=== PATIENT | female | born 1950 | race Caucasian/White ===

== ENCOUNTER 2021-06-14 05:32 | Inpatient (IN) | payer MEDICARE, OTHER ==
[2021-06-07 14:17] LABS: BASOPHILS # (AUTO) 0.1 X10'3 (0-0.2); BASOPHILS % (AUTO) 1.1 % (0-1); EOSINOPHILS # (AUTO) 0.1 X10'3 (0-0.9); EOSINOPHILS % (AUTO) 1.1 % (0-6); LYMPHOCYTES # (AUTO) 0.9 X10'3 (1.1-4.8); LYMPHOCYTES % (AUTO) 18.7 % (21-51); MEAN CORPUSCULAR HEMOGLOBIN 33.1 PG (27.0-31.0); MEAN CORPUSCULAR HGB CONC 34.2 g/dL (33.0-36.5); MEAN CORPUSCULAR VOLUME 96.6 FL (78-98); MEAN PLATELET VOLUME 7.5 FL (7.4-10.4); MONOCYTES # (AUTO) 0.5 X10'3 (0-0.9); MONOCYTES % (AUTO) 9.5 % (2-12); NEUTROPHILS # (AUTO) 3.4 X10'3 (1.8-7.7); NEUTROPHILS % (AUTO) 69.6 % (42-75); PRE OP HEMATOCRIT 40.9 % (35.0-45.0); PRE OP PLATELET COUNT 195 X10'3 (140-440); RED BLOOD COUNT 4.23 X10'6 (4.20-5.60); RED CELL DISTRIBUTION WIDTH 13.6 % (11.5-14.5)
[2021-06-07 14:40] LABS: ALBUMIN 3.8 G/DL (3.4-5.0); ALBUMIN/GLOBULIN RATIO 1.1 (1.1-1.5); ALKALINE PHOSPHATASE 88 IU/L (46-116); BLOOD UREA NITROGEN 28 MG/DL (7-18); BUN/CREATININE RATIO 26.4 (6.6-38.0); CALCIUM 8.8 MG/DL (8.5-10.1); CHLORIDE 108 MMOL/L (99-107); CREATININE 1.06 MG/DL (0.40-0.90); PRE OP ALT 21 U/L (30-65); PRE OP ANION GAP 9 (8-16); PRE OP AST 20 U/L (10-37); PRE OP BILIRUB, TOTAL 0.5 MG/DL (0.0-1.0); PRE OP GLUCOSE 115 MG/DL (70-104); PRE OP SODIUM 144 MMOL/L (135-145); TOTAL CARBON DIOXIDE 27.4 MMOL/L (24-32); TOTAL PROTEIN 7.2 G/DL (6.4-8.2); eGFR 51 ML/MIN
[2021-06-14] VITALS (24 sets, daily range): BP systolic 119–158; BP diastolic 43–78
[~2021-06-14] VITALS: Ht 167.6 cm; Wt 85.9 kg
[~2021-06-14 05:32] MED LIST: AMLO2.5T2 PO; ERGO400C PO; FAMO20TA8 PO; LEVO25TA7 PO; LOSA50TA3 PO; MAGN400C PO; MELO-100 PO; PRED1TAB PO; TRAM50TA2 PO; VITA400T10 PO; cefazolin/dext.iso 2gm/50ml IV ONE; famotidine 20mg tablet PO ONE; ringers solution, lacted 1,000 ML IV SCH; tranexamic acid 650mg tablet PO ONE; vancomycin 1,500 MG in NS 300ml IV soln IV ONE
[2021-06-14] MEDS ORDERED: BUPIVAcaine 0.5% inj/PF 30 ML ONE (06:42)
[2021-06-14] MEDS ORDERED: ketorolac trometh. 30mg/ml inj. ONE (06:42)
[2021-06-14] MEDS ORDERED: BUPIVAcaine/PF 2.5 mg/ml (0.25%) 30ml vial ONE (06:44)
[2021-06-14] MEDS ORDERED: ROPIVAcaine 0.5% (5mg/ml) 30ml vial ONE ×2 (06:47→08:09)
[2021-06-14] MEDS ORDERED: sevoflurane 250ml liquid IH ONE (07:06)
[2021-06-14] MEDS ORDERED: midazolam 1 mg/ML 2ml injection ONE (07:11)
[2021-06-14] MEDS ORDERED: fentaNYL/PF 50MCG/1 ML 2ML syringe ONE (07:11)
[2021-06-14] MEDS ORDERED: rocuronium 10mg/ml inj IV ONE ×2 (08:09→08:13)
[2021-06-14] MEDS ORDERED: LIDOcaine 2% (20mg/ml) 5ml vial ONE (08:09)
[2021-06-14] MEDS ORDERED: propofol inj 20 ML IV ONE (08:09)
[2021-06-14] MEDS ORDERED: LIDOcaine 1%/PF 5ML 10 MG/ML VIAL ONE (08:09)
[2021-06-14] MEDS ORDERED: 0.9 % SODIUM CHLORIDE 10 ML VIAL ONE (08:09)
[2021-06-14] MEDS ORDERED: ePHEDrine 50MG/ML INJ. ONE (08:10)
[2021-06-14] MEDS ORDERED: ondansetron/PF 4mg/2ml inj ONE (08:13)
[2021-06-14] MEDS ORDERED: dexamethasone sod phosphate 4mg/ml inj. ONE (08:37)
[2021-06-14] MEDS ORDERED: acetaminophen 1,000mg/100ml IV 100 ML IV PRN (08:40)
[2021-06-14] MEDS ORDERED: ringers solution, lacted 1,000 ML IV SCH (08:40)
[2021-06-14] MEDS ORDERED: labetalol 20mg/4ml (5mg/ml) syringe IV PRN (08:40)
[2021-06-14] MEDS ORDERED: meperidine/PF 25mg/ml syringe IV PRN (08:40)
[2021-06-14] MEDS ORDERED: ROPIVAcaine 0.2% (10 MG/5 ML) BOLUS INJECTION INTERSCALE PRN (08:40)
[2021-06-14] MEDS ORDERED: hydrALAZINE 20mg/ml inj. IV PRN (08:40)
[2021-06-14] MEDS ORDERED: HYDROmorphone/PF 0.2 MG/ML SYRINGE IV PRN ×2 (08:40)
[2021-06-14] MEDS ORDERED: ROPIVAcaine 0.2%/PF PUMP/bolus 545 ML INTERSCALE SCH (08:40)
[2021-06-14] MEDS ORDERED: ondansetron/PF 4mg/2ml inj IV PRN ×2 (08:40→09:10)
[2021-06-14] MEDS ORDERED: fentaNYL/PF 50MCG/1 ML 2ML syringe IV PRN ×2 (08:40)
[2021-06-14] MEDS ORDERED: glycopyrrolate 0.2mg/ml inj ONE (08:57)
[2021-06-14] MEDS ORDERED: neostigmine methylsulfate 1 MG/ML 10ml vial ONE (08:57)
--- NOTE | 2021-06-14 09:07 | NUR ---
Received from OR via BED, accompanied by Anesthesiologist DR CASTANO and report given by Anesthesiologist AND DIRECTOR MORTGAGE. PT LEFT SHOULDER W/DRSG CDI, SHOULDER WRAP, ICE PACK, IMMOBILIZER IN PLACE. PT DROWSY, DENIES PAIN. RIGHT OUTER ELBOW NOTED TO HAVE A 1 INCH SKIN TEAR, CLEANSED, ZEROFORM APPLIED W/TAGADERM. Addendum: 06/14/21 at 0945 by Demi Wynne RN Amended: Links added.
[2021-06-14] MEDS ORDERED: acetaminophen 325mg tablet PO PRN (09:10)
[2021-06-14] MEDS ORDERED: oxyCODONE IR 5mg (immed. release) tablet PO PRN ×2 (09:10)
[2021-06-14] MEDS ORDERED: diphenhydrAMINE 25mg capsule PO PRN ×2 (09:10)
[2021-06-14] MEDS: potassium cl 20mEq in 1/2 NS 1,000 ML IV SCH ×2 (09:10→18:01)
[2021-06-14] MEDS ORDERED: bisacodyl 10mg suppository rectal RC PRN (09:10)
[2021-06-14] MEDS ORDERED: HYDROmorphone inj. 0.5 MG/0.5 ML DISP.SYRIN IV PRN (09:10)
[2021-06-14] MEDS ORDERED: magnesium hydroxide 30ml (MOM) UD suspension PO PRN (09:10)
[2021-06-14] MEDS ORDERED: HYDROmorphone 1 mg/ml syringe IV PRN (09:10)
[2021-06-14] MEDS: proCHLORperazine 10 MG/2 ml inj IV PRN ×2 (10:02→10:21)
--- NOTE | 2021-06-14 10:39 | NUR ---
Patient in room . I have received report from ONEYDA KIRBY and had the opportunity to ask questions and assume patient care.
[2021-06-14] MEDS ORDERED: scopolamine 1mg/72 hr patch TD PRN (10:55)
--- NOTE | 2021-06-14 11:17 | NUR ---
Report called to receiving nurse. Transferred via BED W/2 BAGS OF Belongings AND 1 RED BAG TO ROOM 355A, BLL, CALL LIGHT GIVEN, SIDE RAILS UP X 3, NURSES AID AT BEDSIDE TO ATTACH PT TO VS. Special Issues communicated to receiving nurse. YES. Addendum: 06/14/21 at 1121 by Demi Wynne RN Amended: Links added.
[2021-06-14] MEDS: acetaminophen 325mg tablet PO SCH ×2 (14:41→21:54)
[2021-06-14] MEDS: ceFAZolin/D5W- 1GM premix 50 ML IV SCH (16:48)
--- NOTE | 2021-06-14 18:10 | NUR ---
Problems reprioritized. Patient report given, questions answered & plan of care reviewed with rosa hall .
[2021-06-14] MEDS ORDERED: vancomycin/NS 1 GM ADD-VANTAGE 250 ML IV SCH (20:00)
[2021-06-14] MEDS ORDERED: sennosides 8.6mg tablet PO SCH (21:00)
[2021-06-14] MEDS ORDERED: traMADol 50MG tablet PO SCH (21:00)
[2021-06-15] VITALS: BP 109/49
[2021-06-15] MEDS: ceFAZolin/D5W- 1GM premix 50 ML IV SCH (00:08)
[2021-06-15] MEDS: potassium cl 20mEq in 1/2 NS 1,000 ML IV SCH ×2 (01:10→09:10)
[2021-06-15] MEDS: acetaminophen 325mg tablet PO SCH ×2 (02:00→07:52)
[2021-06-15] MEDS ORDERED: mag hydrox/Alum hydrox/simeth 30ml oral suspension PO ONE (04:20)
[2021-06-15 05:59] LABS: BASOPHILS % (AUTO) 0.1 % (0-1); EOSINOPHILS % (AUTO) 0 % (0-6); HEMATOCRIT 35.9 % (35.0-45.0); HEMOGLOBIN 12.3 g/dl (12.0-16.0); LYMPHOCYTES # (AUTO) 0.7 X10'3 (1.1-4.8); LYMPHOCYTES % (AUTO) 8.3 % (21-51); MEAN CORPUSCULAR HEMOGLOBIN 33.3 PG (27.0-31.0); MEAN CORPUSCULAR HGB CONC 34.3 g/dL (33.0-36.5); MEAN CORPUSCULAR VOLUME 96.9 FL (78-98); MEAN PLATELET VOLUME 7.8 FL (7.4-10.4); MONOCYTES # (AUTO) 0.7 X10'3 (0-0.9); MONOCYTES % (AUTO) 8.9 % (2-12); NEUTROPHILS # (AUTO) 6.5 X10'3 (1.8-7.7); NEUTROPHILS % (AUTO) 82.7 % (42-75); PLATELET COUNT 182 X10'3 (140-440); RED CELL DISTRIBUTION WIDTH 13.5 % (11.5-14.5); WHITE BLOOD COUNT 7.9 X10'3 (4.5-11.0)
--- NOTE | 2021-06-15 06:00 | NUR ---
Problems reprioritized. Patient report given, questions answered & plan of care reviewed with LAY. Addendum: 06/15/21 at 0642 by Sohail Camarena RN Amended: Links added.
[2021-06-15 06:13] LABS: ANION GAP 10 (8-16); CHLORIDE 108 MMOL/L (99-107); POTASSIUM 4.3 MMOL/L (3.5-5.1); SODIUM 143 MMOL/L (135-145); TOTAL CARBON DIOXIDE 25.4 MMOL/L (24-32)
--- NOTE | 2021-06-15 06:30 | NUR ---
Patient in room [facility]. I have received report from KOFI Mercedes and had the opportunity to ask questions and assume patient care.
--- NOTE | 2021-06-15 06:50 | NUR ---
Problems reprioritized. Patient report given, questions answered & plan of care reviewed with LAY. Addendum: 06/15/21 at 0651 by Sohail Camarena RN Amended: Links added.
[2021-06-15 07:00] VITALS: BP 145/79
[2021-06-15] MEDS ORDERED: amLODIPine 5mg tablet PO SCH (08:00)
[2021-06-15] MEDS ORDERED: MELOXICAM PO SCH (08:00)
[2021-06-15] MEDS ORDERED: famotidine 20mg tablet PO SCH (08:00)
[2021-06-15] MEDS ORDERED: losartan 50mg tablet PO SCH (08:00)
[2021-06-15] MEDS ORDERED: levoTHYROXINE 25mcg tablet PO SCH (08:00)
[2021-06-15] MEDS ORDERED: predniSONE 1 mg tablet PO SCH (08:00)
[2021-06-15] MEDS ORDERED: aspirin 325mg tablet PO SCH (08:30)
[2021-06-15 11:00] VITALS: BP 125/65
[2021-06-16] MEDS ORDERED: acetaminophen 325mg tablet PO PRN (09:10)
== END 2021-06-15 14:55 | disposition home or self-care (01) | DRG 483 ==
LOC: PAS 05:32 → EDSTATUS 10:00 → PAS IN 10:36 → SUR 3N 11:36
PROVIDERS: ADMIT Orthopaedic Surgery; ATTEND Orthopaedic Surgery
PROC: 0LS40ZZ Reposition Left Upper Arm Tendon, Open Approach (ICD-10-PCS; 2021-06-14)
PROC: 3E0T3BZ Introduction of Anesthetic Agent into Peripheral Nerves and Plexi, Percutaneous Approach (ICD-10-PCS; 2021-06-14)
PROC: 0RRK00Z Replacement of Left Shoulder Joint with Reverse Ball and Socket Synthetic Substitute, Open Approach (ICD-10-PCS; principal; 2021-06-14 07:06)
DX: M19.012 Primary osteoarthritis, left shoulder (principal); M75.102 Unspecified rotator cuff tear or rupture of left shoulder, not specified as traumatic; Z79.899 Other long term (current) drug therapy
CPT/HCPCS: 36415; 73020; 80051; 80053; 82948; 84443; 85025; 87081; 93005; 97161; 97530; G0378; J0690; J0780; J1100; J1885; J2250; J2405; J2704; J2710; J2795; J3010; J3370; J3480; J3490; J7040; J7120; S0020; U0003; U0005

== ENCOUNTER 2022-03-01 07:04 | Inpatient (IN) | payer MEDICARE, OTHER ==
[2022-02-23 15:56] LABS: BASOPHILS # (AUTO) 0.1 X10'3 (0-0.2); BASOPHILS % (AUTO) 0.9 % (0-1); EOSINOPHILS # (AUTO) 0.1 X10'3 (0-0.9); EOSINOPHILS % (AUTO) 2.3 % (0-6); LYMPHOCYTES # (AUTO) 1.1 X10'3 (1.1-4.8); LYMPHOCYTES % (AUTO) 18.5 % (21-51); MEAN CORPUSCULAR HEMOGLOBIN 32.7 PG (27.0-31.0); MEAN CORPUSCULAR HGB CONC 34.1 g/dL (33.0-36.5); MEAN CORPUSCULAR VOLUME 95.9 FL (78-98); MEAN PLATELET VOLUME 8.5 FL (7.4-10.4); MONOCYTES # (AUTO) 0.4 X10'3 (0-0.9); MONOCYTES % (AUTO) 7.7 % (2-12); NEUTROPHILS # (AUTO) 4.1 X10'3 (1.8-7.7); NEUTROPHILS % (AUTO) 70.6 % (42-75); PRE OP HEMATOCRIT 40.8 % (35.0-45.0); PRE OP HEMOGLOBIN 13.9 g/dL (12.0-16.0); PRE OP PLATELET COUNT 221 X10'3 (140-440); RED BLOOD COUNT 4.26 X10'6 (4.20-5.60); RED CELL DISTRIBUTION WIDTH 12.8 % (11.5-14.5)
[2022-02-23 16:17] LABS: ALBUMIN 4.2 G/DL (3.4-5.0); ALBUMIN/GLOBULIN RATIO 1.3 (1.1-1.5); ALKALINE PHOSPHATASE 102 IU/L (46-116); BLOOD UREA NITROGEN 28 MG/DL (7-18); BUN/CREATININE RATIO 24.1 (6.6-38.0); CALCIUM 9.3 MG/DL (8.5-10.1); CHLORIDE 106 MMOL/L (99-107); CREATININE 1.16 MG/DL (0.40-0.90); PRE OP ALT 16 U/L (30-65); PRE OP ANION GAP 9 (8-16); PRE OP AST 28 U/L (10-37); PRE OP BILIRUB, TOTAL 0.6 MG/DL (0.0-1.0); PRE OP GLUCOSE 98 MG/DL (70-104); PRE OP POTASSIUM 4.1 MMOL/L (3.4-5.1); PRE OP SODIUM 143 MMOL/L (135-145); TOTAL CARBON DIOXIDE 28.4 MMOL/L (24-32); TOTAL PROTEIN 7.4 G/DL (6.4-8.2); eGFR 46 ML/MIN
[2022-03-01] VITALS (17 sets, daily range): BP systolic 94–132; BP diastolic 43–69
[~2022-03-01] VITALS: Ht 167.6 cm; Wt 87.1 kg
[~2022-03-01 07:04] MED LIST changes: -ERGO400C PO; -FAMO20TA8 PO; -MAGN400C PO; +PANT-47 PO; -TRAM50TA2 PO; -VITA400T10 PO; +ceFAZolin inj. 2,000 MG in dextrose 5%-water 100 ML IV ONE; -cefazolin/dext.iso 2gm/50ml IV ONE
--- NOTE | 2022-03-01 07:30 | NUR ---
PT WAS ABLE TO COMPLETE ALL 5 SHOWERS AND OINTMENT, HAD PREVIOUSLY HAD LEFT SHOULDER DONE AWARE OF WHAT TO EXPECT, CSM + TO BILAT UPPER EXTREMITES
[2022-03-01] MEDS ORDERED: ROPIVAcaine 0.5% (5mg/ml) 30ml vial ONE (08:51)
[2022-03-01] MEDS ORDERED: aprepitant 40mg capsule PO ONE (09:22)
[2022-03-01] MEDS ORDERED: fentaNYL/PF 50MCG/1 ML 2ML syringe ONE (09:52)
[2022-03-01] MEDS ORDERED: midazolam 1 mg/ML 2ml injection ONE (09:53)
[2022-03-01] MEDS ORDERED: LIDOcaine 1%/PF 5ML 10 MG/ML VIAL ONE ×2 (10:21→11:14)
[2022-03-01] MEDS: ketorolac trometh. 30mg/ml inj. ONE ×2 (10:46→10:47)
[2022-03-01] MEDS ORDERED: morphine 4 MG/ML inj SYRINge IV PRN (11:05)
[2022-03-01] MEDS ORDERED: ringers solution, lacted 1,000 ML IV SCH (11:05)
[2022-03-01] MEDS ORDERED: meperidine/PF 25mg/ml syringe IV PRN ×3 (11:05)
[2022-03-01] MEDS ORDERED: ROPIVAcaine 0.2%/PF PUMP/bolus 545 ML INTERSCALE SCH (11:05)
[2022-03-01] MEDS ORDERED: ROPIVAcaine 0.2% (10 MG/5 ML) BOLUS INJECTION INTERSCALE PRN (11:05)
[2022-03-01] MEDS ORDERED: morphine 2 MG/ML inj. syringe IV PRN (11:05)
[2022-03-01] MEDS ORDERED: proCHLORperazine 10 MG/2 ml inj IV PRN (11:05)
[2022-03-01] MEDS ORDERED: ondansetron/PF 4mg/2ml inj IV PRN ×2 (11:05→12:10)
[2022-03-01] MEDS ORDERED: ondansetron/PF 4mg/2ml inj ONE (11:14)
[2022-03-01] MEDS ORDERED: dexamethasone sod phosphate 4mg/ml inj. ONE (11:14)
[2022-03-01] MEDS ORDERED: propofol inj 20 ML IV ONE (11:14)
[2022-03-01] MEDS ORDERED: rocuronium 10mg/ml inj IV ONE (11:45)
[2022-03-01] MEDS ORDERED: ePHEDrine 50MG/ML INJ. ONE (11:45)
--- NOTE | 2022-03-01 12:02 | NUR ---
Received from OR via BED, accompanied by Anesthesiologist and report given by WENCESLAO Anesthesiologist. PATIENT WAKING UP, DENIES PAIN, V/S WNL, SCD ON, 20G TO LH, drsg to shoulder C/D/I with SLING AND ICE POWDER PACK. Addendum: 03/01/22 at 1216 by Alfa Ramirez RN Amended: Links added.
[2022-03-01] MEDS ORDERED: oxyCODONE IR 5mg (immed. release) tablet PO PRN ×2 (12:10)
[2022-03-01] MEDS ORDERED: HYDROmorphone inj. 0.5 MG/0.5 ML DISP.SYRIN IV PRN (12:10)
[2022-03-01] MEDS ORDERED: naloxone 0.4 mg/ml inj IV PRN (12:10)
[2022-03-01] MEDS ORDERED: magnesium hydroxide 30ml (MOM) UD suspension PO PRN (12:10)
[2022-03-01] MEDS ORDERED: HYDROcodone/acetaminophen 10/325mg tab PO PRN ×2 (12:10)
[2022-03-01] MEDS ORDERED: diphenhydrAMINE 25mg capsule PO PRN ×2 (12:10)
[2022-03-01] MEDS ORDERED: bisacodyl 10mg suppository rectal RC PRN (12:10)
[2022-03-01] MEDS ORDERED: acetaminophen 325mg tablet PO PRN (12:10)
[2022-03-01] MEDS ORDERED: HYDROmorphone 1 mg/ml syringe IV PRN (12:10)
--- NOTE | 2022-03-01 13:02 | NUR ---
PATIENT HAS MET ALL CRITERIA FOR TRANSFER TO ORTHO FLOOR. VSS. DRESSINGS INTACT. BED LOW, CALL LIGHT PRESENT AND 2 RAILS UP. RN PRESENT TO ACCEPT CARE OF PATIENT AND REPORT HAS BEEN CALLED. ALL QUESTIONS ANSWERED TO ACCEPTING RN. Addendum: 03/01/22 at 1313 by Alfa Ramirez RN Amended: Links added.
[2022-03-01] MEDS ORDERED: metoclopramide 5 mg/ml inj IV PRN (14:10)
[2022-03-01] MEDS: ceFAZolin/D5W- 1GM premix 50 ML IV SCH (15:29)
[2022-03-01] MEDS: acetaminophen 325mg tablet PO SCH ×2 (15:33→21:19)
[2022-03-01] MEDS: potassium cl 20mEq in 1/2 NS 1,000 ML IV SCH ×2 (15:34→20:10)
--- NOTE | 2022-03-01 18:15 | NUR ---
REPORT TO SEPTEMBER RN
[2022-03-01] MEDS ORDERED: vancomycin/NS 1 GM ADD-VANTAGE 250 ML IV SCH (20:00)
[2022-03-01] MEDS ORDERED: sennosides 8.6mg tablet PO SCH (21:00)
[2022-03-01] MEDS ORDERED: pantoprazole 40mg Tablet.DR PO SCH (21:00)
[2022-03-02] MEDS: ceFAZolin/D5W- 1GM premix 50 ML IV SCH (00:13)
[2022-03-02] MEDS: potassium cl 20mEq in 1/2 NS 1,000 ML IV SCH (01:56)
[2022-03-02] MEDS: acetaminophen 325mg tablet PO SCH ×2 (01:56→08:13)
[2022-03-02 02:00] VITALS: BP 106/49
[2022-03-02 06:00] VITALS: BP 100/51
[2022-03-02 06:39] LABS: BASOPHILS % (AUTO) 0.2 % (0-1); EOSINOPHILS % (AUTO) 0 % (0-6); HEMOGLOBIN 11.1 g/dl (12.0-16.0); LYMPHOCYTES # (AUTO) 0.7 X10'3 (1.1-4.8); LYMPHOCYTES % (AUTO) 6.3 % (21-51); MEAN CORPUSCULAR HEMOGLOBIN 33.7 PG (27.0-31.0); MEAN CORPUSCULAR HGB CONC 34.9 g/dL (33.0-36.5); MEAN CORPUSCULAR VOLUME 96.7 FL (78-98); MEAN PLATELET VOLUME 8.6 FL (7.4-10.4); MONOCYTES # (AUTO) 0.8 X10'3 (0-0.9); NEUTROPHILS # (AUTO) 9.3 X10'3 (1.8-7.7); NEUTROPHILS % (AUTO) 86.5 % (42-75); PLATELET COUNT 169 X10'3 (140-440); RED BLOOD COUNT 3.31 X10'6 (4.20-5.60); RED CELL DISTRIBUTION WIDTH 12.8 % (11.5-14.5); WHITE BLOOD COUNT 10.7 X10'3 (4.5-11.0)
[2022-03-02 06:58] LABS: ANION GAP 8 (8-16); CHLORIDE 111 MMOL/L (99-107); POTASSIUM 4.6 MMOL/L (3.5-5.1); SODIUM 143 MMOL/L (135-145)
[2022-03-02] MEDS ORDERED: losartan 50mg tablet PO SCH (08:00)
[2022-03-02] MEDS ORDERED: levoTHYROXINE 25mcg tablet PO SCH (08:00)
[2022-03-02] MEDS ORDERED: predniSONE 1 mg tablet PO SCH (08:00)
[2022-03-02] MEDS ORDERED: MELOXICAM 7.5 MG TABLET PO SCH (08:00)
[2022-03-02] MEDS ORDERED: amLODIPine 2.5mg tablet PO SCH (08:00)
[2022-03-02] MEDS ORDERED: aspirin 325mg tablet PO SCH (08:30)
[2022-03-03] MEDS ORDERED: acetaminophen 325mg tablet PO PRN (12:10)
== END 2022-03-02 10:10 | disposition home or self-care (01) | DRG 483 ==
LOC: PAS 07:04 → EDSTATUS 10:00 → PAS IN 12:11 → ORTHO 4S 13:05
PROVIDERS: ADMIT Orthopaedic Surgery; ATTEND Orthopaedic Surgery
PROC: 0LS30ZZ Reposition Right Upper Arm Tendon, Open Approach (ICD-10-PCS; 2022-03-01)
PROC: 3E0T3BZ Introduction of Anesthetic Agent into Peripheral Nerves and Plexi, Percutaneous Approach (ICD-10-PCS; 2022-03-01)
PROC: 3E0T33Z Introduction of Anti-inflammatory into Peripheral Nerves and Plexi, Percutaneous Approach (ICD-10-PCS; 2022-03-01)
PROC: 0RRJ00Z Replacement of Right Shoulder Joint with Reverse Ball and Socket Synthetic Substitute, Open Approach (ICD-10-PCS; principal; 2022-03-01 09:48)
DX: M19.011 Primary osteoarthritis, right shoulder (principal); M75.121 Complete rotator cuff tear or rupture of right shoulder, not specified as traumatic; M65.811 Other synovitis and tenosynovitis, right shoulder
CPT/HCPCS: 36415; 80051; 80053; 82948; 85025; 87081; 87811; 97110; 97162; A4565; A4615; A4618; A7000; C1776; G0378; J0690; J1100; J1885; J2250; J2405; J2704; J2795; J3010; J3370; J3480; J3490; J7040; J7060; J7120; J7512; J8501; Q0163

== ENCOUNTER 2022-04-17 08:43 | Emergency (ER) | payer MEDICARE, OTHER ==
[~2022-04-17] VITALS: Ht 167.6 cm; Wt 84.0 kg
[~2022-04-17 08:43] MED LIST changes: +AMLO10TA13 PO; -AMLO2.5T2 PO; +ASPI-100 PO; +IBUP-1985 PO; +LACT1CAP75 PO; -LEVO25TA7 PO; +LEVO75TA7 PO; +MAGN400C PO; +SULF1TAB45 PO; -ceFAZolin inj. 2,000 MG in dextrose 5%-water 100 ML IV ONE; -famotidine 20mg tablet PO ONE; -ringers solution, lacted 1,000 ML IV SCH; -tranexamic acid 650mg tablet PO ONE; -vancomycin 1,500 MG in NS 300ml IV soln IV ONE
[2022-04-17] MEDS ORDERED: normal saline 1000ml 1,000 ML IV ONE (09:50)
[2022-04-17 10:36] LABS: BASOPHILS % (AUTO) 0.4 % (0-1); EOSINOPHILS # (AUTO) 0.1 X10'3 (0-0.9); EOSINOPHILS % (AUTO) 2.8 % (0-6); HEMATOCRIT 33.6 % (35.0-45.0); HEMOGLOBIN 11.5 g/dl (12.0-16.0); LYMPHOCYTES # (AUTO) 0.4 X10'3 (1.1-4.8); LYMPHOCYTES % (AUTO) 13.7 % (21-51); MEAN CORPUSCULAR HEMOGLOBIN 32.2 PG (27.0-31.0); MEAN CORPUSCULAR HGB CONC 34.1 g/dL (33.0-36.5); MEAN CORPUSCULAR VOLUME 94.3 FL (78-98); MEAN PLATELET VOLUME 8.2 FL (7.4-10.4); MONOCYTES # (AUTO) 0.2 X10'3 (0-0.9); MONOCYTES % (AUTO) 8.1 % (2-12); NEUTROPHILS # (AUTO) 1.9 X10'3 (1.8-7.7); PLATELET COUNT 148 X10'3 (140-440); RED BLOOD COUNT 3.56 X10'6 (4.20-5.60); RED CELL DISTRIBUTION WIDTH 12.7 % (11.5-14.5); WHITE BLOOD COUNT 2.6 X10'3 (4.5-11.0)
[2022-04-17 10:43] LABS: CLARITY,URINE CLEAR (Clear); COLOR,URINE YELLOW (Yellow); GLUCOSE, URINE NEGATIVE (Neg); KETONES,URINE 40 mg/dl (Neg); LEUKOCYTE ESTERASE ,URINE NEGATIVE (Neg); NITRITES, URINE NEGATIVE (Neg); OCCULT BLOOD,URINE NEGATIVE (Neg); PROTEIN,URINE 30 mg/dl (Neg); UROBILINOGEN,URINE 0.2 E.U/dL (0.2-1.0)
[2022-04-17 10:49] LABS: UA COLLECTION TYPE NON-SPECIFIED
[2022-04-17 10:50] LABS: BACTERIA,URINE FEW /HPF (Neg); MUCUS STRANDS MODERATE /LPF (Neg); RBC,URINE 0-2 /HPF (0-2); SQUAMOUS EPITHELIAL CELL,UR MANY /LPF (FEW); WBC,URINE 0-4 /HPF (0-4)
[2022-04-17 10:52] LABS: ALANINE AMINOTRANSFERASE 16 U/L (12-78); ALBUMIN 3.2 G/DL (3.4-5.0); ALKALINE PHOSPHATASE 91 IU/L (46-116); ANION GAP 11 (8-16); ASPARTATE AMINO TRANSFERASE 28 U/L (10-37); BILIRUBIN,TOTAL 0.4 MG/DL (0.1-1.0); BLOOD UREA NITROGEN 14 MG/DL (7-18); BUN/CREATININE RATIO 17.5 (6.6-38.0); CALCIUM 8.4 MG/DL (8.5-10.1); CHLORIDE 107 MMOL/L (99-107); GLUCOSE 97 MG/DL (70-104); MAGNESIUM 2.1 MG/DL (1.5-2.4); POTASSIUM 3.4 MMOL/L (3.5-5.1); SODIUM 142 MMOL/L (135-145); TOTAL PROTEIN 6.5 G/DL (6.4-8.2); eGFR 71 ML/MIN
[2022-04-17] MEDS ORDERED: POTASSIUM BICARB 20meq eff tab 20 MEQ TABLET.EFF PO PRN (11:05)
[2022-04-17 11:14] LABS: PLATELET ESTIMATE NORMAL; TOTAL CELLS COUNTED 100
[2022-04-17] MEDS ORDERED: metoclopramide 5 mg/ml inj IV ONE (11:40)
[2022-04-17] MEDS ORDERED: METO10TA3 PO (11:58)
[2022-04-17] MEDS ORDERED: LOPE2CAP PO (11:58)
[2022-04-17 12:20] VITALS: BP 118/77
== END 2022-04-17 12:22 | disposition home or self-care (01) ==
LOC: ER 08:44
DX: B34.9 Viral infection, unspecified (principal); R05.9 Cough, unspecified; G89.29 Other chronic pain
CPT/HCPCS: 36415; 71045; 80053; 81001; 83605; 83735; 85007; 85025; 87040; 87502; 87503; 93005; 96361; 96374; 99285; J2765; J7030

== ENCOUNTER 2022-07-18 12:40 | Emergency (ER) | payer MEDICARE, OTHER ==
[~2022-07-18] VITALS: Ht 167.6 cm; Wt 84.1 kg
[~2022-07-18 12:40] MED LIST changes: +LOPE2CAP PO
[2022-07-18 12:53] VITALS: BP 153/79
== END 2022-07-18 17:18 | disposition left against medical advice (07) ==
LOC: ER 12:40
DX: R05.9 Cough, unspecified (principal); Z53.21 Procedure and treatment not carried out due to patient leaving prior to being seen by health care provider